=== PATIENT | female | born 1980 | race Caucasian/White ===

== ENCOUNTER → 2019-02-25 06:00 | Outpatient (CLI) | payer OTHER | END | disposition home or self-care (01) | LOC: LAB 06:00 → ADM 08:15 → CIR.AMB 03-03 08:15 → EDSTATUS 03-03 08:15 → CIR.AMB 03-03 17:00 | DX: N93.8 Other specified abnormal uterine and vaginal bleeding (principal); Z01.818 Encounter for other preprocedural examination ==

== ENCOUNTER 2019-02-27 16:09 | Emergency (ER) | payer OTHER ==
[~2019-02-27] VITALS: Ht 157.5 cm; Wt 75.3 kg
== END 2019-02-28 12:59 | disposition home or self-care (01) ==
LOC: ER 16:09
DX: L02.31 Cutaneous abscess of buttock (principal); E11.9 Type 2 diabetes mellitus without complications

== ENCOUNTER → 2020-04-03 06:00 | Outpatient (CLI) | payer OTHER | END | disposition home or self-care (01) | LOC: LAB 06:00 → ADM 11:00 → CIR.AMB 04-05 10:15 → EDSTATUS 04-05 11:00 → CIR.AMB 04-05 11:00 → ADM 04-05 11:00 | PROVIDERS: ATTEND Obstetrics & Gynecology Obstetrics | DX: N93.8 Other specified abnormal uterine and vaginal bleeding (principal) ==

== ENCOUNTER → 2020-05-19 | Day surgery (SDC) | payer OTHER | END | disposition home or self-care (01) | LOC: ADM 05-12 07:45 → CIR.AMB 07:45 | PROVIDERS: ATTEND Obstetrics & Gynecology Obstetrics | DX: N93.8 Other specified abnormal uterine and vaginal bleeding (principal); Z20.828 Contact with and (suspected) exposure to other viral communicable diseases ==

== ENCOUNTER → 2020-07-21 07:00 | Outpatient (CLI) | payer OTHER ==
[~2020-07-21] VITALS: Ht 157.5 cm; Wt 77.1 kg
== END | disposition home or self-care (01) ==
LOC: LAB 07:00 → EDSTATUS 07-28 07:45 → SURH 07-28 07:45
PROVIDERS: ATTEND Obstetrics & Gynecology Obstetrics
DX: Z20.828 Contact with and (suspected) exposure to other viral communicable diseases (principal); N39.0 Urinary tract infection, site not specified; Z01.810 Encounter for preprocedural cardiovascular examination; Z01.812 Encounter for preprocedural laboratory examination; Z01.811 Encounter for preprocedural respiratory examination

== ENCOUNTER 2021-02-26 11:35 | Outpatient (CLI) | payer OTHER | END 2021-02-26 11:43 | disposition home or self-care (01) | LOC: SONOGRAMA 11:35 | PROVIDERS: ATTEND Pathology Anatomic Pathology & Clinical Pathology | DX: D21.0 Benign neoplasm of connective and other soft tissue of head, face and neck (principal) ==

== ENCOUNTER 2022-12-03 08:41 | Outpatient (CLI) | payer OTHER | END 2022-12-03 08:51 | disposition home or self-care (01) | LOC: SONOGRAMA 08:41 | PROVIDERS: ATTEND Specialist | DX: R22.1 Localized swelling, mass and lump, neck (principal) ==

== ENCOUNTER 2022-12-17 05:50 | Day surgery (SDC) | payer OTHER ==
[~2022-12-17] VITALS: Ht 157.5 cm; Wt 79.4 kg
[~2022-12-17 05:50] MED LIST: GLIPIZIDE XL5 MG PO; GLUMETZA1000 MG PO; SIMVAST PO
== END 2022-12-17 14:35 | disposition home or self-care (01) ==
LOC: CIR.AMB 05:50
PROVIDERS: ATTEND Specialist
DX: D17.0 Benign lipomatous neoplasm of skin and subcutaneous tissue of head, face and neck (principal); Z91.013 Allergy to seafood; Z20.822 Contact with and (suspected) exposure to COVID-19; E11.9 Type 2 diabetes mellitus without complications; Z79.84 Long term (current) use of oral hypoglycemic drugs

== ENCOUNTER → 2022-12-30 | Outpatient (CLI) | payer OTHER | END | disposition home or self-care (01) | LOC: SONOGRAMA 10:00 | PROVIDERS: ATTEND Pathology Anatomic Pathology & Clinical Pathology | DX: D34 Benign neoplasm of thyroid gland (principal); E04.9 Nontoxic goiter, unspecified; E04.8 Other specified nontoxic goiter ==

== ENCOUNTER 2025-05-04 06:00 | Day surgery (SDC) | payer OTHER ==
[2025-04-26 13:02] VITALS: BP 130/90
[~2025-05-04 06:00] MED LIST changes: +ATORVASTATIN CA10 MG PO; +JARDIANCE25 MG PO; +MOUNJARO5 MG/0.5 M; +VASOTEC2.5 MG PO
[2025-05-04] MEDS ORDERED: CEFAZOLIN SODIUM 1,000 MG VIAL IV ONE (10:30)
[2025-05-04] MEDS ORDERED: BUPIVACAINE HCL 30 ML VIAL IJ ONE (10:30)
[2025-05-04] MEDS ORDERED: MORPHINE SULFATE 4 MG/ML VIAL IV ONE (11:20)
[2025-05-04] MEDS ORDERED: PERCOCET 5-3251 EACH PO (12:00)
== END 2025-05-04 13:10 | disposition home or self-care (01) ==
LOC: CIR.AMB 06:00
PROVIDERS: ATTEND Surgery
DX: D17.0 Benign lipomatous neoplasm of skin and subcutaneous tissue of head, face and neck (principal); R22.1 Localized swelling, mass and lump, neck; Z91.012 Allergy to eggs